=== PATIENT | female | born 1955 ===

== ENCOUNTER 2020-02-08 17:38 | Emergency (ER) | payer MEDICARE ==
[~2020-02-08] VITALS: Ht 172.7 cm; Wt 90.7 kg
--- NOTE | 2020-02-08 17:47 | NUR ---
ED Nurse Note: pt arrives from home via la[facility] with c/o aloc per family. pt family relate pt had a lab draw today and has been altered since. pt alert but unable to orient other than to name. pt able to follow commands. pt giving nonsensical answers to year and place questions. labs drawn from prehospital iv site. iv site not patent when flushed, removed. pt to ct scan for code stroke. covid swab obtained. pt without c/o pain. denies headache or fall prior to arrival, states im ok. skin warm and dry no resp distress no n/v/d no fevers per pt.
--- NOTE | 2020-02-08 17:49 | NUR ---
ED Nurse Note: MARY- DAUGHTER - PER DAUGHTER, PT. STARTED STATING RANDOM THINGS AND STARTED SAYING THEALPHABET LETTERS AFTER GETTING HOME FROM HER APPOINTMENT TO GET HER BLOOD WORK DONE TODAY AND AN XRAY. ASKED THE DAUGHTER REGARDING THE PATIENT'S MEDLIST AND MED HX AND WAS TOLD TO CALL US BACK WHENEVER SHE GETS MORE INFORMATION
--- NOTE | 2020-02-08 17:54 | Emergency Room Report ---
History of Present Illness General Chief Complaint: Altered Mental Status Source: Patient, Family Member, EMS Present Illness HPI Disclaimer: Please note that this report is being documented using [employer] technology. This can lead to erroneous entry secondary to incorrect interpretati on by the dictating instrument. HPI: 64-year-old female brought in for evaluation of altered mental status. Time of onset approximately 45 minutes prior to arrival. The patient was getting blood drawn at home for unknown reason. Family states she began to speak nonsensically, seeking the alphabet, stating she wanted to go to the store. She is able to answer her name but otherwise has no recollection of the events that brought her here. I was able to reach family by phone who stated she is taking Eliquis and took it this morning but I do not know why. She has a history of hypertension and psychiatric issues but they do not know the exact diagnoses. They deny recent trauma. PMH: Unspecified psychiatric history, hypertension PSH: Unable to obtain Allergies: Unable to obtain Social Hx: Unable to obtain Allergies: Coded Allergies: No Known Allergies (Unverified , 02/08/20) COVID-19 Screening Contact w/high risk pt: No Experienced COVID-19 symptoms?: No COVID-19 Testing performed LOGISTICS AND PLANNING MANAGER: No Patient History Last Menstrual Period: na Nursing Documentation-PMH Past Medical History: No History, Except For Hx Hypertension: Yes Review of Systems All Other Systems: limited - Unable unable to obtain from patient due to clinical condition Physical Exam Vital Signs Date Time Temp Pulse Resp B/P (MAP) Pulse Ox O2 Delivery O2 Flow Rate FiO2 02/08/20 17:37 98.1 58 18 170/100 (123) 97 Room Air General: Awake, no acute distress HEENT: NC/AT. EOMI. PERRLA. Visual johnson are full. No nystagmus. Facial ex pressions are symmetrical. No facial droop. Cardiovascular: RRR. S1 and S2 normal. No murmur appreciated Resp: Normal work of breathing. No cough, wheezing or crackles appreciated Abdomen: Abdomen is soft, nondistended. Nontender Skin: Intact. No abrasions, laceration or rash over the exposed skin MSK: Normal tone and bulk. Moving all extremities. No obvious deformity. There is no drift in the upper or lower extremities bilaterally. Neuro: Awake. Confused conversation. Knows name but incorrect age. Unable to tell me time of year or month. Facial expression symmetrical. No dysarthria, no ataxia on [id number] or [id number] testing. Sensation to light touch is intact over the upper and lower extremities. The patient has intact speech with good repetition. Poor comprehension. Nonsensical speech with word salad-like responses. Fund of knowledge is poor. NIH score: 3 Procedures Critical Care Time Critical Care Time Total critical care time: Approximately 45 minutes Due to a high probability of clinically significant, life threatening deterioration, the patient required the highest level of preparedness to intervene emergently and I personally spent this critical care time directly and personally managing the patient. This critical care time included obtaining a history, examining the patient, pulse oximetry, ordering and reviewing studies, ordering treatments, evaluating response to treatment and updating management plan as needed, frequent reassessment and discussion with other providers as well as arranging for ultimate disposition. This critical to care time was pe rformed to assess and manage the high probability of life-threatening deterioration that could result in multiorgan failure. This critical care time is separate from the separately billable procedures and treating other patients. Medical Decision Making Diagnostic Impression: Primary Impression: Altered mental status Additional Impression: Expressive aphasia ER Course 64-year-old female presents with acute mental status change approximately 45 minutes prior to arrival, approximately 5:15 PM. She was reportedly taking apixaban according to her children though reason for apixaban is unknown. Differential includes was not limited to TIA, CVA, encephalopathy, psychiatric illness, intracranial bleed, no cranial mass, toxicologic factors among others. Patient arrives with NIH score of 3 for fragmented expression word salad-like responses. Code stroke activated. Patient taken for stat CT. No acute bleed identified. Patient does not meet criteria for TPA as she is on apixaban. Remains altered. Test positive for marijuana but labs are otherwise within normal limits. CTA of the head and neck obtained does not show any high-grade stenosis or occlusion. Discussed with neurology attending at [facility] who accepted the patient for transfer for higher level of care and possible interv ention. She is stable for transfer. Laboratory Tests Test 02/08/20 17:43 02/08/20 17:45 02/08/20 18:10 02/08/20 18:25 POC Whole Blood Glucose 125 MG/DL (74-106) H White Blood Count 5.8 K/UL (4.8-10.8) Red Blood Count 4.20 M/UL (4.20-5.40) Hemoglobin 14.2 G/DL (12.0-16.0) Hematocrit 42.4 % (37.0-47.0) Mean Corpuscular Volume 101 FL (80-99) H Mean Corpuscular Hemoglobin 33.9 PG (27.0-31.0) H Mean Corpuscular Hemoglobin Concent 33.6 G/DL (32.0-36.0) Red Cell Distribution Width 14.1 % (11.6-14.8) Platelet Count 225 K/UL (150-450) Mean Platelet Volume 7.3 FL (6.5-10.1) Neutrophils (%) (Auto) 78.4 % (45.0-75.0) H Lymphocytes (%) (Auto) 16.9 % (20.0-45.0) L Monocytes (%) (Auto) 3.5 % (1.0-10.0) Eosinophils (%) (Auto) 0.2 % (0.0-3.0) Basophils (%) (Auto) 1.0 % (0.0-2.0) Prothrombin Time 11.5 SEC (9.30-11.50) Prothrombin Time INR 1.0 (0.9-1.1) Activated Partial Thromboplast Time 31 SEC (23-33) Sodium Level 138 MMOL/L (136-145) Potassium Level 4.0 MMOL/L (3.5-5.1) Chloride Level 103 MMOL/L (98-107) Carbon Dioxide Level 26 MMOL/L (21-32) Anion Gap 9 mmol/L (5-15) Blood Urea Nitrogen 5 mg/dL (7-18) L Creatinine 0.9 MG/DL (0.55-1.30) Estimated Glomerular Filtration Rate > 60 mL/min (>60) Glucose Level 122 MG/DL (74-106) H Lactic Acid Level 1.50 mmol/L (0.4-2.0) Calcium Level 9.1 MG/DL (8.5-10.1) Total Bilirubin 0.5 MG/DL (0.2-1.0) Aspartate Amino Transferase (AST) 30 U/L (15-37) Alanine Aminotransferase (ALT) 29 U/L (12-78) Alkaline Phosphatase 80 U/L (46-116) Troponin I 0.000 ng/mL (0.000-0.056) Total Protein 7.1 G/DL (6.4-8.2) Albumin 3.6 G/DL (3.4-5.0) Globulin 3.5 g/dL Albumin/Globulin Ratio 1.0 (1.0-2.7) Triglycerides Level 51 MG/DL (30-150) Cholesterol Level 162 MG/DL (< 200) LDL Cholesterol 111 mg/dL (<100) H HDL Cholesterol 43 MG/DL (40-60) Cholesterol/HDL Ratio 3.8 (3.3-4.4) Salicylates Level 3.8 ug/mL (2.8-20) Acetaminophen Level < 2 MCG/ML (10-30) L Serum Alcohol < 3 mg/dL Ammonia < 10 umol/L (11-32) L Urine Color Pale yellow Urine Appearance Clear Urine pH 7 (4.5-8.0) Urine Specific [place] 1.005 (1.005-1.035) Urine Protein 3+ (NEGATIVE) H Urine Glucose (UA) Negative (NEGATIVE) Urine Ketones Negative (NEGATIVE) Urine Blood 3+ (NEGATIVE) H Urine Nitrite Negative (NEGATIVE) Urine Bilirubin Negative (NEGATIVE) Urine Urobilinogen Normal MG/DL (0.0-1.0) Urine Leukocyte Esterase Negative (NEGATIVE) Urine RBC 10-15 /HPF (0 - 2) H Urine WBC 0-2 /HPF (0 - 2) Urine Squamous Epithelial Cells Few /LPF (NONE/OCC) Urine Bacteria Few /HPF (NONE) Urine Opiates Screen Negative (NEGATIVE) Urine Barbiturates Screen Negative (NEGATIVE) Phencyclidine (PCP) Screen Negative (NEGATIVE) Urine Amphetamines Screen Negative (NEGATIVE) Urine Benzodiazepines Screen Negative (NEGATIVE) Urine Cocaine Screen Negative (NEGATIVE) Urine Marijuana (THC) Screen Positive (NEGATIVE) H Microbiology Date/Time Source Procedure Growth Status 02/08/20 17:45 Nasopharynx SARS-CoV-2 RdRp Gene Assay - Final Complete EKG Diagnostic Results Troponin ordered: Yes When was troponin ordered?: Feb 08, 2020 EKG Time: 18:11 Rate: normal Rhythm: NSR ST Segments: no acute changes Other Impression Sinus rhythm, left axis, normal intervals, no ST segment changes, QTC 382 ms Rhythm Strip Diag. Results Rhythm Strip Time: 18:11 EP Interpretation: yes Rate: 60 Rhythm: NSR, no PVC's, no ectopy CT/MRI/US Diagnostic Results CT/MRI/US Diagnostic Results : Impression Final Report EXAM: CT Head Without Intravenous Contrast CLINICAL HISTORY: AMS TECHNIQUE: Axial computed tomography images of the head/brain without intravenous contrast. CTDI is 53.4 mGy and DLP is 1043.6 mGy-cm. One or more of the following dose reduction techniques were used: automated exposure control, adjustment of the mA and/or kV according to patient size, use of iterative reconstruction technique. COMPARISON: None. FINDINGS: Brain: Mild generalized brain atrophy. No hemorrhage. No significant white matter disease. Ventricles: Unremarkable. No ventriculomegaly. Bones/joints: Unremarkable. No acute fracture. Soft tissues: Unremarkable. Sinuses: Unremarkable as visualized. No acute sinusitis. Mastoid air cells: Unremarkable as visualized. No mastoid effusion. IMPRESSION: 1. Involutional changes otherwise normal CT brain for age. 2. Specifically, no acute intracranial hemorrhage or space-occupying lesion. Radiologist: Katiana Deluna MD Electronically Signed: 02/08/20 18:09 Study ready at 18:01 and initial results transmitted at 18:09 CTA Neck IMPRESSION: Negative CT angiogram with no evidence of stenosis, dissection or occlusion involving the bilateral carotid and vertebral arteries. Radiologist: Katiana Deluna MD Electronically Signed: 02/08/20 19:43 Study ready at 19:25 and initial results transmitted at 19:43 CTA brain IMPRESSION: No evidence of high-grade stenosis or occlusion involving the intracranial vascularity. Radiologist: Katiana Deluna MD Electronically Signed: 02/08/20 20:03 Study ready at 20:01 and initial results transmitted at 20:03 Last Vital Signs Date Time Temp Pulse Resp B/P (MAP) Pulse Ox O2 Delivery O2 Flow Rate FiO2 02/08/20 17:37 98.1 58 18 170/100 (123) 97 Room Air Disposition: SHORT-TERM HOSP Condition: Stable Davey Escobedo MD Feb 08, 2020 17:54
[2020-02-08] MEDS ORDERED: Omnipaque 350 100ml vial INJ PRN (18:00)
--- NOTE | 2020-02-08 18:10 | Diagnostic Imaging Report ---
EXAM: CT Head Without Intravenous Contrast CLINICAL HISTORY: AMS TECHNIQUE: Axial computed tomography images of the head/brain without intravenous contrast. CTDI is 53.4 mGy and DLP is 1043.6 mGy-cm. One or more of the following dose reduction techniques were used: automated exposure control, adjustment of the mA and/or kV according to patient size, use of iterative reconstruction technique. COMPARISON: None. FINDINGS: Brain: Mild generalized brain atrophy. No hemorrhage. No significant white matter disease. Ventricles: Unremarkable. No ventriculomegaly. Bones/joints: Unremarkable. No acute fracture. Soft tissues: Unremarkable. Sinuses: Unremarkable as visualized. No acute sinusitis. Mastoid air cells: Unremarkable as visualized. No mastoid effusion. IMPRESSION: 1. Involutional changes otherwise normal CT brain for age. 2. Specifically, no acute intracranial hemorrhage or space-occupying lesion.
[2020-02-08 18:16] VITALS: BP 153/66
[2020-02-08 18:20] LABS: ANION GAP 9 mmol/L (5-15); BLOOD UREA NITROGEN 5 mg/dL (7-18); CALCIUM 9.1 MG/DL (8.5-10.1); CARBON DIOXIDE 26 MMOL/L (21-32); CHLORIDE 103 MMOL/L (98-107); CREATININE 0.9 MG/DL (0.55-1.30); SODIUM 138 MMOL/L (136-145)
[2020-02-08 18:22] LABS: EOSINOPHILS % (AUTO) 0.2 % (0.0-3.0); HEMATOCRIT 42.4 % (37.0-47.0); HEMOGLOBIN 14.2 G/DL (12.0-16.0); LYMPHOCYTES % (AUTO) 16.9 % (20.0-45.0); MEAN CORPUSCULAR VOLUME 101 FL (80-99); MONOCYTES % (AUTO) 3.5 % (1.0-10.0); NEUTROPHILS % (AUTO) 78.4 % (45.0-75.0); PLATELET COUNT 225 K/UL (150-450); RED CELL DISTRIBUTION WIDTH 14.1 % (11.6-14.8); WHITE BLOOD COUNT 5.8 K/UL (4.8-10.8)
[2020-02-08 18:24] LABS: ALANINE AMINOTRANSFERASE 29 U/L (12-78); ALBUMIN 3.6 G/DL (3.4-5.0); ALKALINE PHOSPHATASE 80 U/L (46-116); ASPARTATE AMINO TRANSFERASE 30 U/L (15-37); BILIRUBIN,TOTAL 0.5 MG/DL (0.2-1.0); CHOLESTEROL 162 MG/DL (< 200); HDL CHOLESTEROL 43 MG/DL (40-60); TRIGLYCERIDES 51 MG/DL (30-150)
--- NOTE | 2020-02-08 18:32 | NUR ---
ED Nurse Note: pt with straight cath urine inserted and sample obtained. pt tolerates well. pt remains unable to recall details of afternoon or children names. md reeval of pt. pt remains awake and alert.
--- NOTE | 2020-02-08 18:47 | NUR ---
ED Nurse Note: pt returned to ct scan for further studies.
[2020-02-08 19:00] LABS: APPEARANCE,URINE CLEAR; BILIRUBIN, URINE NEGATIVE (NEGATIVE); COLOR,URINE PALE YELLOW; GLUCOSE, URINE (UA) NEGATIVE (NEGATIVE); KETONES,URINE NEGATIVE (NEGATIVE); LEUKOCYTE ESTERASE ,URINE NEGATIVE (NEGATIVE); NITRITE,URINE NEGATIVE (NEGATIVE); PH,URINE 7 (4.5-8.0); PROTEIN,URINE 3+ (NEGATIVE); UROBILINOGEN,URINE NORMAL MG/DL (0.0-1.0)
--- NOTE | 2020-02-08 19:02 | NUR ---
ED Nurse Note: pt returned from ct scan, no changes in mentation.
--- NOTE | 2020-02-08 19:08 | NUR ---
ED Nurse Note: Patient in stable condition, no acute distress noted. Provided warm blankets.
[2020-02-08] MEDS ORDERED: ELIQUIS2.5 MG ORAL (19:32)
[2020-02-08] MEDS ORDERED: ATENOLOL25 MG ORAL (19:32)
[2020-02-08] MEDS ORDERED: ADVAIR 500-501 EACH INH (19:32)
[2020-02-08] MEDS ORDERED: QUETIAPINE FUM400 MG ORAL (19:32)
[2020-02-08] MEDS ORDERED: OMEPRAZOLE20 M2 ORAL (19:32)
[2020-02-08] MEDS ORDERED: FLONASE ALLERG9.9 ML NS (19:32)
[2020-02-08] MEDS ORDERED: REXULTI0.5 MG PO (19:32)
[2020-02-08] MEDS ORDERED: ACETAMINOPHEN500 M3 ORAL (19:32)
--- NOTE | 2020-02-08 19:43 | Diagnostic Imaging Report ---
EXAM: CT Angiography Neck With Intravenous Contrast CLINICAL HISTORY: AMS TECHNIQUE: Axial computed tomographic angiography images of the neck with intravenous contrast. CTDI is 142 mGy and DLP is 2111 mGy-cm. One or more of the following dose reduction techniques were used: automated exposure control, adjustment of the mA and/or kV according to patient size, use of iterative reconstruction technique. MIP reconstructed images were created and reviewed. COMPARISON: None. FINDINGS: VASCULATURE: Right common carotid artery: Unremarkable. No significant stenosis. No dissection or occlusion. Right internal carotid artery: Unremarkable. Extracranial segment is patent with no significant stenosis. No dissection or occlusion. Right external carotid artery: Unremarkable. No occlusion. Right vertebral artery: Unremarkable. No significant stenosis. No dissection or occlusion. Left common carotid artery: Unremarkable. No significant stenosis. No dissection or occlusion. Left internal carotid artery: Unremarkable. Extracranial segment is patent with no significant stenosis. No dissection or occlusion. Left external carotid artery: Unremarkable. No occlusion. Left vertebral artery: Unremarkable. No significant stenosis. No dissection or occlusion. NECK: Bones/joints: No acute fracture. No dislocation. Soft tissues: Unremarkable as visualized. No mass. CAROTID STENOSIS REFERENCE USING NASCET CRITERIA: % ICA stenosis = (1 - narrowest ICA diameter/diameter of distal cervical ICA) x 100. Mild - <50% stenosis. Moderate - 50-69% stenosis. Severe - 70-94% stenosis. Near occlusion - 95-99% stenosis. Occluded - 100% stenosis. IMPRESSION: Negative CT angiogram with no evidence of stenosis, dissection or occlusion involving the bilateral carotid and vertebral arteries.
--- NOTE | 2020-02-08 20:04 | Diagnostic Imaging Report ---
EXAM: CT Angiography Head With Intravenous Contrast CLINICAL HISTORY: AMS TECHNIQUE: Axial computed tomographic angiography images of the head with intravenous contrast. One or more of the following dose reduction techniques were used: automated exposure control, adjustment of the mA and/or kV according to patient size, use of iterative reconstruction technique. MIP reconstructed images were created and reviewed.total DLP is 2111.5 mgycm and total CTDIvol is 142.8 mgy. COMPARISON: None. FINDINGS: Right internal carotid artery: Mild atherosclerotic disease at the cavernous portion of the internal carotid arteries with no stenosis. No aneurysm. Right anterior cerebral artery: Unremarkable. No occlusion or significant stenosis. No aneurysm. Right middle cerebral artery: Unremarkable. No occlusion or significant stenosis. No aneurysm. Right posterior cerebral artery: Unremarkable. No occlusion or significant stenosis. No aneurysm. Right vertebral artery: Unremarkable as visualized. Left internal carotid artery: See above. Left anterior cerebral artery: Unremarkable. No occlusion or significant stenosis. No aneurysm. Left middle cerebral artery: Unremarkable. No occlusion or significant stenosis. No aneurysm. Left posterior cerebral artery: Unremarkable. No occlusion or significant stenosis. No aneurysm. Left vertebral artery: Unremarkable as visualized. Basilar artery: Unremarkable. No occlusion or significant stenosis. No aneurysm. IMPRESSION: No evidence of high-grade stenosis or occlusion involving the intracranial vascularity.
--- NOTE | 2020-02-08 20:30 | NUR ---
ED Nurse Note: Report given to ARSENIO Ramos at [facility].
[2020-02-08 20:52] VITALS: BP 158/70
--- NOTE | 2020-02-08 20:52 | NUR ---
ER DISCHARGE NOTE: Patient is cleared [place] be [place] [facility] [facility]. Patient aao x 1 to self upon departure accompanied by ambulance personnel [facility] unit [id number], all patient belongings discharged with patient. Patient stable during transfer, report given to ARSENIO Ramos [place] [facility] No acute distress noted during transfer.
== END 2020-02-08 20:52 | disposition short-term general hospital (02) ==
LOC: EDBD 17:38 → EMR 17:55 → EDBEDREQ 18:27 → CANBEDREQ 18:31 → EMR 20:52
DX: R47.01 Aphasia (principal); R41.82 Altered mental status, unspecified; I10 Essential (primary) hypertension
CPT/HCPCS: 36415; 51701; 70450; 70496; 70498; 80053; 80061; 80307; 81003; 82140; 82962; 83605; 84484; 85025; 85610; 85730; 86900; 86901; 87040; 93005; 99291; G0480; Q9967; U0002